=== PATIENT | male | born 1960 | race Caucasian/White ===

== ENCOUNTER 2023-09-07 11:01 | Day surgery (SDC) | payer BC ==
[2023-09-01 16:18] LABS: BILIRUBIN,URINE NEGATIVE (Neg); CLARITY,URINE CLEAR (Clear); COLOR,URINE YELLOW (Yellow); GLUCOSE, URINE NEGATIVE (Neg); KETONES,URINE NEGATIVE (Neg); LEUKOCYTE ESTERASE ,URINE NEGATIVE (Neg); NITRITES, URINE NEGATIVE (Neg); OCCULT BLOOD,URINE TRACE-INTACT (Neg); PH,URINE 5.5 (4.8-8.0); PROTEIN,URINE NEGATIVE (Neg); UROBILINOGEN,URINE 0.2 E.U/dL (0.2-1.0)
[2023-09-01 16:21] LABS: UA COLLECTION TYPE CLN CATCH MIDSTREAM
[2023-09-01 16:26] LABS: BASOPHILS # (AUTO) 0.1 X10'3 (0-0.2); BASOPHILS % (AUTO) 0.9 % (0-1); EOSINOPHILS # (AUTO) 0.1 X10'3 (0-0.9); EOSINOPHILS % (AUTO) 1.8 % (0-6); LYMPHOCYTES # (AUTO) 1.8 X10'3 (1.1-4.8); LYMPHOCYTES % (AUTO) 28.9 % (21-51); MEAN CORPUSCULAR HEMOGLOBIN 29.9 PG (27.0-31.0); MEAN CORPUSCULAR VOLUME 87.8 FL (78-98); MONOCYTES # (AUTO) 0.4 X10'3 (0-0.9); NEUTROPHILS # (AUTO) 3.8 X10'3 (1.8-7.7); NEUTROPHILS % (AUTO) 61.4 % (42-75); PRE OP HEMATOCRIT 42.6 % (42.0-52.0); PRE OP HEMOGLOBIN 14.5 g/dL (14.0-17.9); PRE OP PLATELET COUNT 184 X10'3 (140-440); PRE OP WHITE BLOOD COUNT 6.1 10'3 (4.8-10.8); RED BLOOD COUNT 4.84 X10'6 (4.70-6.10); RED CELL DISTRIBUTION WIDTH 12.7 % (11.5-14.5)
[2023-09-01 16:35] LABS: HYALINE CASTS 0-3 /LPF (NEGATIVE); MUCUS STRANDS MANY /LPF (Neg)
[2023-09-01 16:36] LABS: BACTERIA,URINE NONE SEEN /HPF (Neg); CAL OXALATE CRYSTALS 1+ /HPF (NEGATIVE); RBC,URINE 0-2 /HPF (0-2); SQUAMOUS EPITHELIAL CELL,UR FEW /LPF (FEW); WBC,URINE 0-4 /HPF (0-4)
[2023-09-01 16:38] LABS: ALBUMIN 3.9 G/DL (3.4-5.0); ALBUMIN/GLOBULIN RATIO 1.3 (1.1-1.5); ALKALINE PHOSPHATASE 81 IU/L (46-116); BLOOD UREA NITROGEN 17 MG/DL (7-18); BUN/CREATININE RATIO 20.5 (10.0-20.0); CALCIUM 9.5 MG/DL (8.5-10.1); CHLORIDE 105 MMOL/L (99-107); CREATININE 0.83 MG/DL (0.60-1.10); PRE OP ALT 23 U/L (30-65); PRE OP ANION GAP 7 (8-16); PRE OP AST 11 U/L (10-37); PRE OP BILIRUB, TOTAL 0.8 MG/DL (0.0-1.0); PRE OP GLUCOSE 110 MG/DL (70-104); PRE OP POTASSIUM 3.7 MMOL/L (3.4-5.1); PRE OP SODIUM 142 MMOL/L (135-145); TOTAL CARBON DIOXIDE 29.8 MMOL/L (24-32); TOTAL PROTEIN 6.9 G/DL (6.4-8.2); eGFR > 90 ML/MIN
[~2023-09-07] VITALS: Ht 185.4 cm; Wt 72.5 kg
[2023-09-07] VITALS (16 sets, daily range): BP systolic 101–131; BP diastolic 46–85; PULSE 56–81; RESP 12–20; TEMP 98.4; O2SAT 95–100
[2023-09-07] MEDS: cefazolin 2gm/D5W 100mL 100 ML IV ONE (05:30)
[~2023-09-07 11:01] MED LIST: FISH OIL; MVI; TADA20TA43 PO; [UNRECOGNIZED DRUG - CODE]
[2023-09-07] MEDS: ringers solution, lacted 1,000 ML IV SCH (11:32)
[2023-09-07] MEDS: famotidine 20mg tablet PO ONE (11:32)
[2023-09-07] MEDS ORDERED: BUPIVAcaine 2.5mg/ml inj 50ml vial (contains preservative) ONE ×2 (12:33→16:43)
[2023-09-07] MEDS ORDERED: fentaNYL/PF 50MCG/1 ML 2ML syringe ONE (16:47)
[2023-09-07] MEDS ORDERED: midazolam 1 mg/ML 2ml injection ONE (16:48)
[2023-09-07] MEDS ORDERED: rocuronium 10mg/ml inj IV ONE (16:48)
[2023-09-07] MEDS ORDERED: propofol inj 20 ML IV ONE (16:48)
[2023-09-07] MEDS ORDERED: LIDOcaine 2% (20mg/ml) 5ml vial ONE (16:48)
[2023-09-07] MEDS ORDERED: sevoflurane 250ml liquid IH ONE (16:48)
[2023-09-07] MEDS: BUPIVAcaine 0.25% w/Epi /PF 30ml vial IJ ONE (17:30)
[2023-09-07] MEDS ORDERED: morphine 2 MG/ML inj. syringe IV PRN (18:00)
[2023-09-07] MEDS ORDERED: meperidine/PF 25mg/ml syringe IV PRN ×2 (18:00)
[2023-09-07] MEDS ORDERED: morphine 4 MG/ML inj SYRINge IV PRN (18:00)
[2023-09-07] MEDS ORDERED: ringers solution, lacted 1,000 ML IV SCH (18:00)
[2023-09-07] MEDS ORDERED: proCHLORperazine 10 MG/2 ml inj IV PRN (18:00)
[2023-09-07] MEDS ORDERED: dexamethasone sod phosphate 4mg/ml inj. ONE (18:36)
[2023-09-07] MEDS ORDERED: ondansetron/PF 4mg/2ml inj ONE (18:36)
[2023-09-07] MEDS ORDERED: neostigmine methylsulfate 1 MG/ML 10ml vial ONE (18:37)
[2023-09-07] MEDS ORDERED: glycopyrrolate 0.2mg/ml inj ONE (18:38)
[2023-09-07] MEDS ORDERED: acetaminophen 1,000mg/100ml IV 100 ML IV ONE (18:47)
[2023-09-07] MEDS: meperidine/PF 25mg/ml syringe IV PRN (19:32)
[2023-09-07] MEDS: HYDROcodone/acetaminophen 5mg/325mg tablet PO ONE (20:26)
[2023-09-07] MEDS: ondansetron/PF 4mg/2ml inj IV PRN (21:23)
== END 2023-09-07 21:39 | disposition home or self-care (01) ==
LOC: PAS 11:01
PROVIDERS: ATTEND Surgery
DX: K40.90 Unilateral inguinal hernia, without obstruction or gangrene, not specified as recurrent (principal); D17.5 Benign lipomatous neoplasm of intra-abdominal organs; K21.9 Gastro-esophageal reflux disease without esophagitis; I20.9 Angina pectoris, unspecified; I25.2 Old myocardial infarction; Z85.46 Personal history of malignant neoplasm of prostate; Z79.899 Other long term (current) drug therapy; Z90.79 Acquired absence of other genital organ(s); Z98.890 Other specified postprocedural states
CPT/HCPCS: 36415; 49650; 80053; 81001; 82948; 85025; 93005; C1781; J0131; J0690; J1100; J2175; J2250; J2405; J2704; J2710; J3010; J3490; J7030; J7120; S0020; S2900; Z7506; Z7508; Z7512; A4215; A4615; A4618; C1758